=== PATIENT | female | born 1945 | race Two or more races ===

== ENCOUNTER 2017-10-17 13:51 | Emergency (ER) | payer OTHER ==
[~2017-10-17] VITALS: Ht 152.4 cm; Wt 106.1 kg
[~2017-10-17 13:51] MED LIST: ALLOPURINOL300 MG; ASA81 MG; ATENOLOL100 MG; CATAFLAM50 MG PO; CELEBREX100 MG; CITALOPRAM HBR20 MG; CLORAZEPATE D3.75 MG; DIOVAN40 MG; METFORMIN HCL500 MG; NEURONTIN300 MG PO; OMEPRAZOLE20 MG; ONGLYZA5 MG PO; ORPH100T PO; RESTORIL30 MG; SEPTRA DS TABLE1 TAB PO; SYNTHROID50 MCG; ZOCOR20 MG
[2017-10-17] MEDS ORDERED: JANUVIA100 MG PO (14:00)
[2017-10-17] MEDS ORDERED: DUTOPROL 100-11 EACH PO (14:01)
[2017-10-18] MEDS ORDERED: ZITHROMAX TRI-500 MG PO (12:07)
[2017-10-18] MEDS ORDERED: SYMBICORT 80/10.2 GM IH (12:07)
[2017-10-18] MEDS ORDERED: TESSALON PERLE100 M1 PO (12:07)
== END 2017-10-18 13:10 | disposition home or self-care (01) ==
LOC: ER 13:51
DX: J45.909 Unspecified asthma, uncomplicated (principal); R05 Cough

== ENCOUNTER 2017-10-20 09:44 | Inpatient (IN) | payer OTHER ==
[~2017-10-20] VITALS: Ht 152.4 cm; Wt 106.6 kg
[~2017-10-20 09:44] MED LIST changes: +DUTOPROL 100-11 EACH PO; +JANUVIA100 MG PO; +SYMBICORT 80/10.2 GM IH; +TESSALON PERLE100 M1 PO; +ZITHROMAX TRI-500 MG PO
[2017-10-20] MEDS ORDERED: TENORMIN100 M1 (11:00)
[2017-10-20] MEDS ORDERED: TRAZODONE HCL50 MG (11:01)
[2017-10-20] MEDS ORDERED: ORENCIA 250 MG250 MG (11:01)
[2017-10-28] MEDS ORDERED: SIMVASTATIN20 MG PO (11:16)
[2017-10-28] MEDS ORDERED: XOPENEX0.63 MG/3 IH (11:16)
[2017-10-28] MEDS ORDERED: ATENOLOL50 MG PO (11:16)
[2017-10-28] MEDS ORDERED: TRAZODONE HCL50 MG PO (11:16)
[2017-10-28] MEDS ORDERED: POM (MEDICAMENTO EN IH (11:16)
[2017-10-28] MEDS ORDERED: ZYLOPRIM300 MG PO (11:16)
[2017-10-28] MEDS ORDERED: JANUVIA100 MG PO (11:16)
[2017-10-28] MEDS ORDERED: Pulmicort 0.5 MG/2 M IH (11:16)
[2017-10-28] MEDS ORDERED: HYDROCHLOROTHIA25 MG PO (11:16)
[2017-10-28] MEDS ORDERED: POM (MEDICAMENTO EN PO ×2 (11:16)
[2017-10-28] MEDS ORDERED: CARdura 2MG TABLET PO (11:16)
[2017-10-28] MEDS ORDERED: LEVOTHYROXINE50 MCG PO (11:16)
== END 2017-10-28 13:21 | disposition home or self-care (01) | DRG 202 ==
LOC: ER 09:44 → MEDI 10-21 13:16 → SEC-K 10-21 13:16 → MEDI 10-21 15:25
PROC: 3E0F7GC Introduction of Other Therapeutic Substance into Respiratory Tract, Via Natural or Artificial Opening (ICD-10-PCS; principal; 2017-10-21)
PROC: 4A033R1 Measurement of Arterial Saturation, Peripheral, Percutaneous Approach (ICD-10-PCS; 2017-10-21)
DX: J20.9 Acute bronchitis, unspecified (principal); J45.31 Mild persistent asthma with (acute) exacerbation; B37.0 Candidal stomatitis; R09.02 Hypoxemia; G47.33 Obstructive sleep apnea (adult) (pediatric); E66.01 Morbid (severe) obesity due to excess calories; M06.872 Other specified rheumatoid arthritis, left ankle and foot; M06.871 Other specified rheumatoid arthritis, right ankle and foot; E03.8 Other specified hypothyroidism; E11.65 Type 2 diabetes mellitus with hyperglycemia; I10 Essential (primary) hypertension

== ENCOUNTER 2018-04-06 09:42 | Inpatient (IN) | payer OTHER ==
[~2018-04-06] VITALS: Ht 152.4 cm; Wt 117.9 kg
[~2018-04-06 09:42] MED LIST changes: +ATENOLOL50 MG PO; +CARdura 2MG TABLET PO; +DUI500 PO; +HYDROCHLOROTHIA25 MG PO; +LEVOTHYROXINE50 MCG PO; +NABUMETONE500 MG PO; +ORENCIA 250 MG250 MG; +POM (MEDICAMENTO EN IH; +POM (MEDICAMENTO EN PO; +Pulmicort 0.5 MG/2 M IH; +SIMVASTATIN20 MG PO; +TENORMIN100 M1; +TRAZODONE HCL50 MG; +TRAZODONE HCL50 MG PO; +XOPENEX0.63 MG/3 IH; +ZYLOPRIM300 MG PO
[2018-04-06] MEDS ORDERED: LORAZEPAM1 MG (10:20)
[2018-04-07] MEDS ORDERED: CLORAZEPATE D3.75 MG PO (10:26)
[2018-04-07] MEDS ORDERED: DOXAZOSIN MESYLA2 MG PO (10:28)
[2018-04-07] MEDS ORDERED: CITALOPRAM HBR40 MG PO (10:29)
[2018-04-07] MEDS ORDERED: VALSARTAN80 MG PO (10:30)
[2018-04-07] MEDS ORDERED: SYMBICORT 80/10.2 GM NASAL (10:32)
== END 2018-04-10 18:08 | disposition home or self-care (01) | DRG 202 ==
LOC: ER 09:42 → MEDI 20:41 → SEC-K 20:41 → MEDI 23:33
PROC: 3E0F7GC Introduction of Other Therapeutic Substance into Respiratory Tract, Via Natural or Artificial Opening (ICD-10-PCS; principal; 2018-04-06)
PROC: 4A033R1 Measurement of Arterial Saturation, Peripheral, Percutaneous Approach (ICD-10-PCS; 2018-04-06)
PROC: 4A12X4Z Monitoring of Cardiac Electrical Activity, External Approach (ICD-10-PCS; 2018-04-07)
DX: J20.9 Acute bronchitis, unspecified (principal); J45.41 Moderate persistent asthma with (acute) exacerbation; E87.2 Acidosis; R09.02 Hypoxemia; E66.01 Morbid (severe) obesity due to excess calories; G47.33 Obstructive sleep apnea (adult) (pediatric); E11.65 Type 2 diabetes mellitus with hyperglycemia; M06.89 Other specified rheumatoid arthritis, multiple sites; I10 Essential (primary) hypertension; E03.8 Other specified hypothyroidism; F41.8 Other specified anxiety disorders

== ENCOUNTER 2018-06-11 10:47 | Emergency (ER) | payer OTHER ==
[~2018-06-11] VITALS: Ht 152.4 cm; Wt 117.9 kg
[~2018-06-11 10:47] MED LIST changes: +CITALOPRAM HBR40 MG PO; +CLORAZEPATE D3.75 MG PO; +DOXAZOSIN MESYLA2 MG PO; +LORAZEPAM1 MG; +SYMBICORT 80/10.2 GM NASAL; +VALSARTAN80 MG PO
== END 2018-06-11 18:59 | disposition home or self-care (01) ==
LOC: ER 10:47
DX: R53.82 Chronic fatigue, unspecified (principal); R60.0 Localized edema

== ENCOUNTER 2018-09-26 07:43 | Outpatient (CLI) | payer OTHER | END 2018-09-26 07:49 | disposition home or self-care (01) | LOC: LAB 07:43 | DX: E55.9 Vitamin D deficiency, unspecified (principal); M85.80 Other specified disorders of bone density and structure, unspecified site; I10 Essential (primary) hypertension; J45.20 Mild intermittent asthma, uncomplicated; E13.21 Other specified diabetes mellitus with diabetic nephropathy; E03.8 Other specified hypothyroidism; E78.49 Other hyperlipidemia; Z71.3 Dietary counseling and surveillance; E78.00 Pure hypercholesterolemia, unspecified; J45.30 Mild persistent asthma, uncomplicated ==

== ENCOUNTER 2019-02-24 19:36 | Emergency (ER) | payer OTHER ==
[~2019-02-24] VITALS: Ht 152.4 cm; Wt 117.9 kg
== END 2019-02-24 22:46 | disposition home or self-care (01) ==
LOC: ER 19:36
DX: J45.998 Other asthma (principal)

== ENCOUNTER 2019-04-09 09:13 | Emergency (ER) | payer OTHER ==
[~2019-04-09] VITALS: Ht 152.4 cm; Wt 121.6 kg
[2019-04-09] MEDS ORDERED: ABILIFY2 MG (09:41)
[2019-04-09] MEDS ORDERED: FOLIC ACID1 MG (09:42)
[2019-04-09] MEDS ORDERED: METOPROLOL TAR100 MG (09:43)
[2019-04-09] MEDS ORDERED: COZAAR25 MG (09:43)
[2019-04-09] MEDS ORDERED: VITAMIN D400 UNI2 (09:44)
[2019-04-09] MEDS ORDERED: URIN D.S. TABL1 EACH PO (13:35)
== END 2019-04-09 13:50 | disposition home or self-care (01) ==
LOC: ER 09:13
DX: N39.0 Urinary tract infection, site not specified (principal); B96.89 Other specified bacterial agents as the cause of diseases classified elsewhere

== ENCOUNTER 2019-11-30 12:20 | Day surgery (SDC) | payer OTHER ==
[~2019-11-30] VITALS: Ht 152.4 cm; Wt 119.7 kg
[~2019-11-30 12:20] MED LIST changes: +ABILIFY2 MG; +COZAAR25 MG; +FOLIC ACID1 MG; +METOPROLOL TAR100 MG; +URIN D.S. TABL1 EACH PO; +VITAMIN D400 UNI2
[2019-11-30] MEDS ORDERED: GABAPENTIN 800MG (12:54)
[2019-11-30] MEDS ORDERED: GLIPIZIDE XL10 MG (12:54)
[2019-11-30] MEDS ORDERED: HYDROCHLOROTHIAZIDE (12:56)
[2019-11-30] MEDS ORDERED: VALSARTAN80 MG (12:58)
[2019-11-30] MEDS ORDERED: METHOTREXATE 2.5 MG (12:58)
== END 2019-12-01 13:00 | disposition home or self-care (01) ==
LOC: ER 12:20 → SEC-K 12-01 07:18 → ER 12-01 07:18 → O/R 12-01 07:18 → CIR.AMB 12-01 07:18 → O/R 12-01 09:10 → SEC-K 12-01 09:10 → EDSTATUS 12-01 09:15 → O/R 12-01 12:50 → CIR.AMB 12-01 13:00
DX: N20.1 Calculus of ureter (principal); I10 Essential (primary) hypertension; E11.9 Type 2 diabetes mellitus without complications; Z79.4 Long term (current) use of insulin

== ENCOUNTER 2020-06-28 09:22 | Emergency (ER) | payer OTHER ==
[~2020-06-28] VITALS: Ht 152.4 cm; Wt 171.5 kg
[~2020-06-28 09:22] MED LIST changes: +GABAPENTIN 800MG; +GLIPIZIDE XL10 MG; +HYDROCHLOROTHIAZIDE; +METHOTREXATE 2.5 MG; +VALSARTAN80 MG
[2020-06-28] MEDS ORDERED: HYDROCHLOROTHIA25 MG (10:13)
[2020-06-28] MEDS ORDERED: INTESTINEX680 M1 PO (14:58)
[2020-06-28] MEDS ORDERED: MUCINEX600 MG PO (14:58)
[2020-06-28] MEDS ORDERED: AMOX1TAB5 PO (14:58)
== END 2020-06-28 15:35 | disposition home or self-care (01) ==
LOC: ER 09:22
DX: J06.9 Acute upper respiratory infection, unspecified (principal); Z03.818 Encounter for observation for suspected exposure to other biological agents ruled out; R05 Cough

== ENCOUNTER 2022-04-06 11:56 | Emergency (ER) | payer OTHER ==
[~2022-04-06] VITALS: Ht 152.4 cm; Wt 136.1 kg
[~2022-04-06 11:56] MED LIST changes: +AMOX1TAB5 PO; +HYDROCHLOROTHIA25 MG; +INTESTINEX680 M1 PO; +MUCINEX600 MG PO
[2022-04-06] MEDS ORDERED: ZYLOPRIM100 M1 (12:26)
[2022-04-06] MEDS ORDERED: TRAZODONE HCL150 MG PO (12:27)
[2022-04-06] MEDS ORDERED: GRALISE600 MG (12:27)
== END 2022-04-06 16:41 | disposition home or self-care (01) ==
LOC: ER 11:56
DX: R10.31 Right lower quadrant pain (principal); R10.32 Left lower quadrant pain; I10 Essential (primary) hypertension; E11.9 Type 2 diabetes mellitus without complications; Z79.84 Long term (current) use of oral hypoglycemic drugs

== ENCOUNTER 2025-04-03 09:32 | Inpatient (IN) | payer OTHER ==
[~2025-04-03] VITALS: Ht 152.4 cm; Wt 108.9 kg
[~2025-04-03 09:32] MED LIST changes: +GRALISE600 MG; +TRAZODONE HCL150 MG PO; +ZYLOPRIM100 M1
[2025-04-03] MEDS ORDERED: METHYLPREDNISOLONE SOD SUCC 125 MG VIAL IV ONE (10:15)
[2025-04-03] MEDS ORDERED: METHYLPREDNISOLONE SOD SUCC 40 MG VIAL ONE (10:32)
[2025-04-03 10:35] LABS: ABG PO2 147.6 mmHg (80-100); BASE EXCESS -2.9 mmol/l; BICARBONATE 27.8 mmol/l (23-25); SaO2 98.4 %; Tco2 30.2 mmol/l
[2025-04-03 10:51] LABS: BASO % 0.5 % (0.1-1.2); EOS # 0.18 (0.04-0.54); EOS % 1.7 % (0.7-7.0); HEMATOCRIT 40.2 % (34.1-44.9); HEMOGLOBIN 11.6 g/dL (11.2-15.7); LYMPH % 9.7 % (19.3-53.1); MEAN CORPUSCULAR HEMOGLOBIN 26.5 pg (25.6-32.2); MONO # 0.73 (0.24-0.82); MONO % 7.1 % (4.7-12.5); NEUT % 80.3 % (34.0-71.1); PLATELET COUNT 272 K/uL (163-369); RED BLOOD COUNT 4.37 M/uL (3.93-5.22); RED CELL DISTRIBUTION WIDTH 14.8 % (11.6-14.4)
[2025-04-03 11:09] LABS: ABG PH 7.171 (7.35-7.45); ABG pCO2 77.9 mmHg (35-45); allen test SATISFACTORY; o2 100 %; puncture site RADIAL RIGHT
[2025-04-03 11:10] LABS: mode NON REBREATHING MASK
[2025-04-03 11:15] LABS: INR 1.1; PROTHROMBIN TIME 11.9 SECONDS (9.0-11.5)
[2025-04-03] MEDS ORDERED: FUROsemide 40 MG/4 ML VIAL IV ONE ×2 (11:15)
[2025-04-03] MEDS ORDERED: NITROGLYCERIN IN 5 % DEXTROSE 50 MG/250 ML BOTTLE IV ONE ×2 (11:15→11:38)
[2025-04-03 11:24] LABS: ALBUMIN 3.2 gm/dL (3.4-5.0); BILIRUBIN TOTAL 0.64 mg/dL (0.3-1.2); CALCIUM 9.6 mg/dL (8.5-10.1); CREATININE SERUM 1.61 mg/dL (0.55-1.02); GFR 30.71; GLOBULINA 4.2 G/DL (2.4-3.5); TOTAL PROTEIN 7.4 gm/dL (6.4-8.2)
[2025-04-03 11:30] LABS: COVID-19 AG NEGATIVE (NEGATIVE)
[2025-04-03 11:35] LABS: POTASSIUM 6.01 mEq/L (3.5-5.1)
[2025-04-03] MEDS ORDERED: FUROsemide 40 MG/4 ML VIAL ONE ×2 (11:38→19:08)
[2025-04-03 13:39] LABS: URINE APPEARANCE Clear; URINE BILIRRUBIN Negative (NEGATIVE); URINE BLOOD Moderate; URINE COLOR Yellow; URINE KETONE Negative (NEGATIVE); URINE LEUKOCYTE Negative; URINE NITRATE Negative; URINE PROTEIN Negative (NEGATIVE); URINE UROBILINOGEN 0.2 E.U./dl
[2025-04-03 13:40] LABS: BASE EXCESS -2.4 mmol/l; SaO2 98.5 %
[2025-04-03 13:41] LABS: BICARBONATE 28.6 mmol/l (23-25); Tco2 31.1 mmol/l; allen test SATISFACTORY; mode BPAP; puncture site RADIAL RIGHT
[2025-04-03 13:42] LABS: ABG PH 7.164 (7.35-7.45); ABG pCO2 81.3 mmHg (35-45); o2 50 %
[2025-04-03 13:43] LABS: URINE BACTERIA 68.4 uL (0.0-1933); URINE RBC 26.3 uL (0.0-20.8)
[2025-04-03 13:53] LABS: URINE CAST 0.29 uL (0.0-1.40); URINE GLUCOSE 250 MG/DL (NEGATIVE); URINE WBC 1.1 uL (0.0-23.2)
[2025-04-03] MEDS ORDERED: FUROsemide 40 MG/4 ML VIAL IV SCH (17:53)
[2025-04-03 17:54] VITALS: BP 152/71; O2SAT 98
[2025-04-03] MEDS ORDERED: ENOXAPARIN SODIUM 40 MG/0.4 ML SYRINGE SUBCUTANEO SCH (17:59)
[2025-04-03] MEDS ORDERED: DEXTROSE 50 % IN WATER 0.5 G/ML DISP.SYRIN IV PRN (18:00)
[2025-04-03] MEDS ORDERED: INSULIN LISPRO 1,000 UNIT/10 ML UNITS SUBCUTANEO PRN (18:00)
[2025-04-03] MEDS ORDERED: NITROGLYCERIN IN 5 % DEXTROSE 250 ML IV SCH (18:00)
[2025-04-03] MEDS ORDERED: ATORVASTATIN CALCIUM 40 MG TABLET PO SCH (18:01)
[2025-04-03 18:07] VITALS: BP 152/71
[2025-04-03] MEDS ORDERED: CALCIUM GLUCONATE 100 MG/ML VIAL IV ONE (18:15)
[2025-04-03] MEDS ORDERED: ALBUTEROL SULFATE 3 ML/2.5 MG AMPUL.NEB IH SCH (18:37)
[2025-04-03] MEDS ORDERED: CALCIUM GLUCONATE 100 MG/ML VIAL ONE (19:08)
[2025-04-03] MEDS ORDERED: ENOXAPARIN SODIUM 40 MG/0.4 ML SYRINGE SUBCUTANEO ONE (19:09)
[2025-04-03 19:19] VITALS: BP 148/72; O2SAT 99
[2025-04-03 20:45] LABS: CHOL HDL RATIO 2.2 (0-5.0)
[2025-04-03 21:41] LABS: INFLUENZA A AG NEGATIVE (NEGATIVE); INFLUENZA B AG NEGATIVE (NEGATIVE)
[2025-04-03 21:52] LABS: ABG PH 7.217 (7.35-7.45)
[2025-04-03 21:53] LABS: ABG PO2 76.7 mmHg (80-100); ABG pCO2 71.4 mmHg (35-45); BASE EXCESS -1.4 mmol/l; BICARBONATE 28.4 mmol/l (23-25); SaO2 91.6 %; Tco2 30.6 mmol/l; allen test SATISFACTORY; mode BPAP; o2 50 %; puncture site RADIAL LEFT
[2025-04-03 21:56] VITALS: BP 133/61; O2SAT 98
[2025-04-03 23:04] VITALS: BP 118/66; O2SAT 99
[2025-04-04] VITALS (24 sets, daily range): BP systolic 91–132; BP diastolic 43–75; O2SAT 97–100
[2025-04-04 09:33] LABS: BASE EXCESS -0.2 mmol/l; BICARBONATE 30.5 mmol/l (23-25)
[2025-04-04 10:35] LABS: ABG PH 7.195 (7.35-7.45); ABG pCO2 80.9 mmHg (35-45)
[2025-04-04 10:36] LABS: allen test SATISFACTORY; mode BPAP; o2 70 %; puncture site RADIAL RIGHT
[2025-04-04 13:38] LABS: ALBUMIN 3.2 gm/dL (3.4-5.0); BILIRUBIN TOTAL 0.67 mg/dL (0.3-1.2); CALCIUM 9.8 mg/dL (8.5-10.1); CREATININE SERUM 1.78 mg/dL (0.55-1.02); GFR 27.35; GLOBULINA 3.5 G/DL (2.4-3.5); TOTAL PROTEIN 6.7 gm/dL (6.4-8.2)
[2025-04-04 14:10] LABS: POTASSIUM 5.96 mEq/L (3.5-5.1)
[2025-04-05] VITALS (22 sets, daily range): BP systolic 90–171; BP diastolic 46–140; O2SAT 95–100
[2025-04-05 09:55] LABS: ABG PH 7.303 (7.35-7.45); ABG PO2 142.3 mmHg (80-100); BASE EXCESS 4.1 mmol/l; BICARBONATE 32.8 mmol/l (23-25); SaO2 98.9 %; Tco2 34.8 mmol/l
[2025-04-05 11:20] LABS: ABG pCO2 67.6 mmHg (35-45)
[2025-04-05 11:21] LABS: allen test SATISFACTORY; mode BPAP; o2 50 %; puncture site RADIAL LEFT
[2025-04-05 11:23] LABS: ALBUMIN 3.2 gm/dL (3.4-5.0); CALCIUM 9.9 mg/dL (8.5-10.1); CREATININE SERUM 2.03 mg/dL (0.55-1.02); GFR 23.51; GLOBULINA 3.3 G/DL (2.4-3.5); MAGNESIUM 1.7 mg/dL (1.8-2.4); PHOSPHOROUS 3.6 mg/dL (2.5-4.9); POTASSIUM 5.61 mEq/L (3.5-5.1); TOTAL PROTEIN 6.5 gm/dL (6.4-8.2); TSH 2.62 uIU/mL (0.358-3.74)
[2025-04-05 15:11] LABS: BASO % 0.2 % (0.1-1.2); EOS # 0.02 (0.04-0.54); EOS % 0.2 % (0.7-7.0); HEMATOCRIT 34.9 % (34.1-44.9); LYMPH % 6.8 % (19.3-53.1); MEAN CORPUSCULAR HEMOGLOBIN 26.9 pg (25.6-32.2); MONO % 8.7 % (4.7-12.5); NEUT # 8.62 (1.56-6.13); NEUT % 83.7 % (34.0-71.1); PLATELET COUNT 242 K/uL (163-369); RED BLOOD COUNT 3.72 M/uL (3.93-5.22); RED CELL DISTRIBUTION WIDTH 14.9 % (11.6-14.4)
[2025-04-05] MEDS ORDERED: MEROPENEM 500 MG/VIAL VIAL IV SCH (17:00)
[2025-04-05] MEDS ORDERED: LINEZOLID IN DEXTROSE 5% 300 ML IV SCH (17:00)
[2025-04-05] MEDS ORDERED: LEVALBUTEROL HCL 1.25 MG/3 ML SOLUTION IH SCH (18:00)
[2025-04-05] MEDS ORDERED: hydrALAZINE HCL 20 MG VIAL IV SCH (18:00)
[2025-04-05] MEDS ORDERED: BUDESONIDE 0.5 MG/2 ML AMPUL.NEB IH SCH (21:00)
[2025-04-05] MEDS ORDERED: FUROsemide 20 MG/2 ML VIAL IV SCH (21:00)
[2025-04-06 04:00] VITALS: BP 115/76; O2SAT 98
[2025-04-06 05:13] LABS: ABG PH 7.359 (7.35-7.45); ABG PO2 95.3 mmHg (80-100); BASE EXCESS 6.4 mmol/l; BICARBONATE 34.2 mmol/l (23-25); SaO2 97.2 %; Tco2 36.1 mmol/l
[2025-04-06 06:06] LABS: allen test SATISFACTORY; mode BPAP; o2 40 %; puncture site RADIAL RIGHT
[2025-04-06 06:46] LABS: BASO % 0.3 % (0.1-1.2); EOS # 0.14 (0.04-0.54); EOS % 1.5 % (0.7-7.0); HEMOGLOBIN 10.2 g/dL (11.2-15.7); LYMPH # 0.69 (1.18-3.74); LYMPH % 7.5 % (19.3-53.1); MEAN CORPUSCULAR HEMOGLOBIN 27.1 pg (25.6-32.2); MONO % 9.8 % (4.7-12.5); NEUT # 7.45 (1.56-6.13); NEUT % 80.7 % (34.0-71.1); PLATELET COUNT 206 K/uL (163-369); RED BLOOD COUNT 3.77 M/uL (3.93-5.22); RED CELL DISTRIBUTION WIDTH 14.6 % (11.6-14.4)
[2025-04-06 07:12] VITALS: BP 141/66; O2SAT 97
[2025-04-06 07:42] LABS: ALBUMIN 3.1 gm/dL (3.4-5.0); BILIRUBIN TOTAL 1.73 mg/dL (0.3-1.2); C-REACTIVE PROTEIN 7.27 MG/DL (0.00-0.29); CALCIUM 10.2 mg/dL (8.5-10.1); CREATININE SERUM 1.44 mg/dL (0.55-1.02); GFR 34.94; GLOBULINA 3.4 G/DL (2.4-3.5); MAGNESIUM 1.5 mg/dL (1.8-2.4); PHOSPHOROUS 2.1 mg/dL (2.5-4.9); POTASSIUM 4.61 mEq/L (3.5-5.1); TOTAL PROTEIN 6.5 gm/dL (6.4-8.2)
[2025-04-06 07:53] LABS: MYCOPLASMA PNEUMONIAE IGM NON REACTIVE (NO REACTIVE)
[2025-04-06] MEDS ORDERED: FUROsemide 20 MG/2 ML VIAL IV SCH (09:00)
[2025-04-06] MEDS ORDERED: ENOXAPARIN SODIUM 40 MG/0.4 ML SYRINGE SUBCUTANEO SCH ×2 (09:00)
[2025-04-06] MEDS ORDERED: BUDESONIDE 0.5 MG/2 ML AMPUL.NEB IH SCH (09:00)
[2025-04-06] MEDS ORDERED: PANTOPRAZOLE SODIUM 40 MG in 0.9 % SODIUM CHLORIDE 8 ML IV PUSH SCH ×2 (09:00)
[2025-04-06] MEDS ORDERED: METOPROLOL SUCCINATE 25 MG TAB.SR.24H PO SCH ×2 (09:00)
[2025-04-06 12:00] VITALS: BP 143/95; O2SAT 97
[2025-04-06] MEDS ORDERED: LEVALBUTEROL HCL 1.25 MG/3 ML SOLUTION IH SCH (12:00)
[2025-04-06 15:24] VITALS: BP 116/71; O2SAT 95
[2025-04-06 20:01] VITALS: BP 141/70; O2SAT 95
[2025-04-07] VITALS (7 sets, daily range): BP systolic 120–157; BP diastolic 48–90; O2SAT 94–98
[2025-04-07] MEDS ORDERED: ACETAMINOPHEN 500 MG GEL..CAP PO PRN (07:15)
[2025-04-07] MEDS ORDERED: MAGNESIUM SULFATE IN WATER 50 ML IV NR (07:45)
[2025-04-07] MEDS ORDERED: ASPIRIN 81 MG TAB.CHEW PO SCH (09:00)
[2025-04-07] MEDS ORDERED: LOSARTAN POTASSIUM 50 MG TABLET PO SCH (09:00)
[2025-04-07] MEDS ORDERED: METOPROLOL SUCCINATE 50 MG TAB.SR.24H PO SCH (09:00)
[2025-04-07] MEDS ORDERED: GABAPENTIN 800 MG TABLET PO SCH ×2 (09:00→21:00)
[2025-04-07] MEDS ORDERED: PATIENTS OWN MEDICATION (MEDICAMENTO EN PISO) PO SCH ×2 (09:00→17:00)
[2025-04-07] MEDS ORDERED: EMPAGLIFLOZIN 10 MG TABLET PO SCH (09:00)
[2025-04-07] MEDS ORDERED: TRAZODONE HCL 50 MG TABLET PO SCH (21:00)
[2025-04-07] MEDS ORDERED: DOCUSATE SODIUM 100MG CAP PO SCH (21:00)
[2025-04-08 04:00] VITALS: BP 126/51; O2SAT 95
[2025-04-08] MEDS ORDERED: LEVOTHYROXINE SODIUM 50 MCG TABLET PO SCH (06:00)
[2025-04-08 06:41] LABS: BASO % 0.3 % (0.1-1.2); EOS # 0.35 (0.04-0.54); EOS % 3.9 % (0.7-7.0); HEMATOCRIT 36.2 % (34.1-44.9); HEMOGLOBIN 10.7 g/dL (11.2-15.7); LYMPH # 0.92 (1.18-3.74); LYMPH % 10.4 % (19.3-53.1); MEAN CORPUSCULAR HEMOGLOBIN 26.5 pg (25.6-32.2); MONO # 0.82 (0.24-0.82); MONO % 9.2 % (4.7-12.5); NEUT # 6.74 (1.56-6.13); PLATELET COUNT 208 K/uL (163-369); RED BLOOD COUNT 4.04 M/uL (3.93-5.22); RED CELL DISTRIBUTION WIDTH 14.5 % (11.6-14.4)
[2025-04-08 07:04] VITALS: BP 122/49; O2SAT 93
[2025-04-08 07:05] LABS: ALBUMIN 2.9 gm/dL (3.4-5.0); BILIRUBIN TOTAL 1.62 mg/dL (0.3-1.2); CALCIUM 9.9 mg/dL (8.5-10.1); CREATININE SERUM 1.35 mg/dL (0.55-1.02); GFR 37.64; GLOBULINA 3.5 G/DL (2.4-3.5); POTASSIUM 3.55 mEq/L (3.5-5.1); TOTAL PROTEIN 6.4 gm/dL (6.4-8.2)
[2025-04-08] MEDS ORDERED: METOPROLOL TARTRATE 25 MG TABLET PO SCH (09:00)
[2025-04-08 09:38] LABS: ABG PH 7.486 (7.35-7.45); ABG PO2 117.8 mmHg (80-100); BASE EXCESS 12.7 mmol/l; BICARBONATE 38.4 mmol/l (23-25)
[2025-04-08 12:00] VITALS: BP 107/49; O2SAT 96
[2025-04-08 12:33] LABS: allen test SATISFACTORY; mode NASAL CANNULA; o2 40 %; puncture site RADIAL RIGHT
[2025-04-08 16:31] VITALS: BP 113/60; O2SAT 92
[2025-04-08 19:46] VITALS: BP 102/56; O2SAT 95
[2025-04-08 22:49] VITALS: O2SAT 95
[2025-04-09] VITALS: BP 144/85; O2SAT 93
[2025-04-09 03:20] VITALS: O2SAT 90
[2025-04-09 09:17] VITALS: BP 143/81; O2SAT 96
[2025-04-09] MEDS ORDERED: ACETAZOLAMIDE 250 MG TABLET PO SCH (09:18)
[2025-04-09] MEDS ORDERED: METOPROLOL SUCCINATE 50 MG TAB.SR.24H PO SCH (09:19)
[2025-04-09] MEDS ORDERED: FUROsemide 20 MG TABLET PO SCH (09:22)
[2025-04-09] MEDS ORDERED: hydrALAZINE HCL 20 MG VIAL IV PRN (09:30)
[2025-04-09 10:10] VITALS: O2SAT 93
[2025-04-09 16:00] VITALS: BP 103/51; O2SAT 96
[2025-04-09] MEDS ORDERED: PANTOPRAZOLE SODIUM 40 MG TABLET.DR PO SCH (21:00)
[2025-04-10 03:52] VITALS: BP 110/72; O2SAT 100
[2025-04-10 08:13] VITALS: BP 111/59; O2SAT 95
[2025-04-10 09:00] VITALS: O2SAT 70
[2025-04-10 13:00] VITALS: O2SAT 99
[2025-04-10 15:57] LABS: CALCIUM 8.8 mg/dL (8.5-10.1); CREATININE SERUM 1.71 mg/dL (0.55-1.02); GFR 28.65; MAGNESIUM 1.5 mg/dL (1.8-2.4); PHOSPHOROUS 2.6 mg/dL (2.5-4.9); POTASSIUM 3.63 mEq/L (3.5-5.1)
[2025-04-10 16:47] VITALS: BP 110/62; O2SAT 94
[2025-04-10 16:48] VITALS: O2SAT 88
[2025-04-10] MEDS ORDERED: LACTOBACILLUS ACIDOPHILUS 1 CAP CAP PO SCH (17:00)
[2025-04-11] VITALS (7 sets, daily range): BP systolic 90–145; BP diastolic 49–66; O2SAT 77–99
[2025-04-11 07:47] LABS: ALBUMIN 2.6 gm/dL (3.4-5.0); BILIRUBIN TOTAL 0.85 mg/dL (0.3-1.2); CALCIUM 9.3 mg/dL (8.5-10.1); CREATININE SERUM 1.79 mg/dL (0.55-1.02); GFR 27.18; GLOBULINA 3.3 G/DL (2.4-3.5); MAGNESIUM 1.5 mg/dL (1.8-2.4); POTASSIUM 3.64 mEq/L (3.5-5.1); TOTAL PROTEIN 5.9 gm/dL (6.4-8.2)
[2025-04-11 07:51] LABS: C-REACTIVE PROTEIN 5.57 MG/DL (0.00-0.29)
[2025-04-11 08:10] LABS: BASO % 0.3 % (0.1-1.2); EOS # 0.52 (0.04-0.54); EOS % 5.2 % (0.7-7.0); HEMATOCRIT 37.9 % (34.1-44.9); HEMOGLOBIN 11.1 g/dL (11.2-15.7); LYMPH # 0.89 (1.18-3.74); LYMPH % 8.9 % (19.3-53.1); MEAN CORPUSCULAR HEMOGLOBIN 26.4 pg (25.6-32.2); NEUT # 7.74 (1.56-6.13); NEUT % 77.4 % (34.0-71.1); PLATELET COUNT 217 K/uL (163-369); RED CELL DISTRIBUTION WIDTH 14.1 % (11.6-14.4)
[2025-04-11 09:07] LABS: ERYTHROCYTE SEDIMENTATION RATE 87 mm/hr (0-30)
[2025-04-11] MEDS ORDERED: RIVAROXABAN 10 MG TAB PO NR (11:45)
[2025-04-11] MEDS ORDERED: MAGNESIUM SULFATE IN WATER 50 ML IV SCH (12:00)
[2025-04-12 00:40] VITALS: BP 125/56; O2SAT 100
[2025-04-12] MEDS ORDERED: RIVAROXABAN 10 MG TAB PO SCH (09:00)
[2025-04-12 09:07] VITALS: BP 94/50; O2SAT 98
[2025-04-12 09:20] VITALS: O2SAT 95
[2025-04-12] MEDS ORDERED: XARELTO10 MG PO (11:29)
[2025-04-12] MEDS ORDERED: LIPITOR40 M1 PO (11:30)
[2025-04-12] MEDS ORDERED: TOPROL XL50 M1 PO (11:30)
[2025-04-12] MEDS ORDERED: ADULT ASPIRIN81 MG PO (11:31)
[2025-04-12] MEDS ORDERED: TRAZODONE HCL50 MG PO (11:31)
[2025-04-12] MEDS ORDERED: GABAPENTIN800 MG PO (11:31)
[2025-04-12] MEDS ORDERED: INTESTINEX680 M1 PO (11:33)
[2025-04-12] MEDS ORDERED: PANTOPRAZOLE SO40 MG PO (11:34)
[2025-04-12] MEDS ORDERED: JARDIANCE10 MG PO (11:34)
[2025-04-12] MEDS ORDERED: BUDESONIDE0.5 MG/2 M IH (11:35)
[2025-04-12] MEDS ORDERED: SYNTHROID50 MCG PO (11:39)
[2025-04-12 14:12] VITALS: O2SAT 100
== END 2025-04-12 21:08 | disposition home or self-care (01) | DRG 193 ==
LOC: ER 09:38 → ICU 18:43 → ICU-2 18:43 → ICU 21:52 → SURG 04-08 19:20 → MEDI 04-11 17:33
PROVIDERS: General Practice; Internal Medicine; Internal Medicine Critical Care Medicine; Internal Medicine Infectious Disease; ADMIT Internal Medicine; ATTEND Internal Medicine
PROC: 5A09457 Assistance with Respiratory Ventilation, 24-96 Consecutive Hours, Continuous Positive Airway Pressure (ICD-10-PCS; principal; 2025-04-03)
PROC: B246ZZZ Ultrasonography of Right and Left Heart (ICD-10-PCS; 2025-04-03)
PROC: 4A12X4Z Monitoring of Cardiac Electrical Activity, External Approach (ICD-10-PCS; 2025-04-03)
PROC: 3E0F7GC Introduction of Other Therapeutic Substance into Respiratory Tract, Via Natural or Artificial Opening (ICD-10-PCS; 2025-04-03)
PROC: B020ZZZ Computerized Tomography (CT Scan) of Brain (ICD-10-PCS; 2025-04-03)
PROC: BB24ZZZ Computerized Tomography (CT Scan) of Bilateral Lungs (ICD-10-PCS; 2025-04-03)
PROC: B030ZZZ Magnetic Resonance Imaging (MRI) of Brain (ICD-10-PCS; 2025-04-03)
PROC: 02HV33Z Insertion of Infusion Device into Superior Vena Cava, Percutaneous Approach (ICD-10-PCS; 2025-04-05)
PROC: B548ZZA Ultrasonography of Superior Vena Cava, Guidance (ICD-10-PCS; 2025-04-05)
DX: J18.1 Lobar pneumonia, unspecified organism (principal); I50.33 Acute on chronic diastolic (congestive) heart failure; J96.02 Acute respiratory failure with hypercapnia; J96.01 Acute respiratory failure with hypoxia; N17.9 Acute kidney failure, unspecified; J98.11 Atelectasis; I13.0 Hypertensive heart and chronic kidney disease with heart failure and stage 1 through stage 4 chronic kidney disease, or unspecified chronic kidney disease; Z68.42 Body mass index [BMI] 45.0-49.9, adult; E87.3 Alkalosis; J69.0 Pneumonitis due to inhalation of food and vomit; G47.33 Obstructive sleep apnea (adult) (pediatric); E11.65 Type 2 diabetes mellitus with hyperglycemia; N18.9 Chronic kidney disease, unspecified; I27.20 Pulmonary hypertension, unspecified; E03.9 Hypothyroidism, unspecified; E78.5 Hyperlipidemia, unspecified; Z66 Do not resuscitate; Z74.01 Bed confinement status; Z79.84 Long term (current) use of oral hypoglycemic drugs
CPT/HCPCS: 70551